=== PATIENT | male | born 2000 | race Caucasian/White ===

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

== ENCOUNTER 2022-03-12 16:18 | Emergency (ER) | payer MEDICAID, OTHER ==
[~2022-03-12] VITALS: Ht 182.9 cm; Wt 62.8 kg
[2022-03-12 18:18] VITALS: BP 128/75
== END 2022-03-12 18:19 | disposition home or self-care (01) ==
LOC: ER 16:19
DX: S63.615A Unspecified sprain of left ring finger, initial encounter (principal); X58.XXXA Exposure to other specified factors, initial encounter; Y93.89 Activity, other specified; Y92.89 Other specified places as the place of occurrence of the external cause; Y99.8 Other external cause status
CPT/HCPCS: 29130; 73140; 99283

== ENCOUNTER 2023-10-31 17:35 | Emergency (ER) | payer OTHER ==
[~2023-10-31] VITALS: Ht 182.9 cm; Wt 61.0 kg
[2023-10-31 17:48] VITALS: BP 109/57; PULSE 89; O2SAT 98
[2023-10-31] MEDS ORDERED: MELO-100 PO (19:39)
[2023-10-31 19:56] VITALS: RESP 16; TEMP 97.3
== END 2023-10-31 19:59 | disposition home or self-care (01) ==
LOC: ER 17:36
DX: S90.31XA Contusion of right foot, initial encounter (principal); F12.90 Cannabis use, unspecified, uncomplicated; F15.90 Other stimulant use, unspecified, uncomplicated; F14.90 Cocaine use, unspecified, uncomplicated; F19.90 Other psychoactive substance use, unspecified, uncomplicated; X58.XXXA Exposure to other specified factors, initial encounter; Z79.1 Long term (current) use of non-steroidal anti-inflammatories (NSAID); Z79.899 Other long term (current) drug therapy; Y93.89 Activity, other specified; Y92.89 Other specified places as the place of occurrence of the external cause; Y99.8 Other external cause status
CPT/HCPCS: 73630; 99283; L4360